=== PATIENT | male | born 1965 | race Asian ===

== ENCOUNTER 2018-01-06 21:30 | Emergency (ER) | END 2018-01-07 06:48 | disposition home or self-care (01) ==

== ENCOUNTER 2018-06-14 15:03 | Emergency (ER) | payer OTHER ==
[~2018-06-14] VITALS: Ht 152.4 cm; Wt 55.0 kg
[~2018-06-14 15:03] MED LIST: HYDR-4011 PO; NAPR-688 PO
[2018-06-14 15:05] VITALS: Ht 152.4 cm; Wt 55.0 kg
--- NOTE | 2018-06-14 15:10 | ERD ---
ER Documentation Chief Complaint Chief Complaint tired HPI The patient is a 52-year-old male, presenting to the ER because of generalized weakness, Tylenol, chronic cough, chronic chest discomfort for many weeks, he feels that there is no enjoyment in his life, he denies suicidal/homicidal ideation, denies auditory/visual hallucination. He denies fever, chills, neck pain, chest pain, dyspnea, abdominal pain, vomiting, dizzy, diarrhea. He smokes and drinks socially but quitted recently Past medical history: History of palpitation, cholelithiasis, hypertension, history of kidney stones, hepatic steatosis, depression Past surgical history: Cardiac angiogram 2 years ago that was unremarkable, colonoscopy a year ago that was unremarkable ROS All systems reviewed and are negative except as per history of present illness. Medications Home Meds Active Scripts Hydrocodone/Acetaminophen ([place] 5-325 Tablet) 1 Each Tablet, 1 EACH PO Q6 PRN for SEVERE PAIN LEVEL 7-10, #12 TAB Prov:GAVIOTA FERNANDO DO 01/07/18 Naproxen* (Naproxen*) 500 Mg Tablet, 500 MG PO BID PRN for PAIN, #20 TAB Prov:GAVIOTA FERNANDO DO 01/07/18 Allergies Allergies: Coded Allergies: No Known Allergy (Unverified , 01/06/18) PMhx/Soc Hx Alcohol Use: No Hx Substance Use: No Physical Exam Vitals Vital Signs Date Temp Pulse Resp B/P (MAP) Pulse Ox O2 O2 Flow FiO2 Time Delivery Rate 06/14/18 98.2 95 17 107/66 100 Room Air 20:15 (80) 06/14/18 100 17 106/66 100 Room Air 18:29 (79) 06/14/18 99 17 104/64 100 Room Air 16:45 (77) 06/14/18 99 17 97/64 (75) 100 Room Air 16:38 06/14/18 98.8 100 24 101/67 100 15:05 (78) Physical Exam Const: No acute distress. Head: Atraumatic. Eyes: Normal Conjunctiva. ENT: Normal External Ears, Nose and Mouth. Neck: Full range of motion. No meningismus. Resp: Clear to auscultation bilaterally. Cardio: Regular rate and rhythm. Abd: Soft, non distended, normal bowel sounds, non tender. Skin: No petechiae or rashes. Back: No midline or flank tenderness. Ext: No cyanosis, or edema. Neur: Awake and alert. No focal deficit Psych: Depressed Result Diagram: 06/14/18 1527 06/14/18 1527 Results 24 hrs Laboratory Tests Test 06/14/18 15:27 06/14/18 16:27 White Blood Count 6.3 10^3/ul Red Blood Count 3.49 10^6/ul Hemoglobin 11.2 g/dl Hematocrit 33.9 % Mean Corpuscular Volume 97.1 fl Mean Corpuscular Hemoglobin 32.1 pg Mean Corpuscular Hemoglobin Concent 33.0 g/dl Red Cell Distribution Width 12.0 % Platelet Count 218 10^3/UL Mean Platelet Volume 9.3 fl Immature Granulocytes % 0.500 % Neutrophils % % Segmented Neutrophils % (Manual) 54 % Band Neutrophils % (Manual) 5 % Lymphocytes % % Lymphocytes % (Manual) 21 % Reactive Lymphocytes % (Manual) 3 % Monocytes % % Monocytes % (Manual) 12 % Eosinophils % % Eosinophils % (Manual) 3 % Basophils % % Basophils % (Manual) 2 % Nucleated Red Blood Cells % 0.0 /100WBC Immature Granulocytes # 0.030 10^3/ul Neutrophils # 10^3/ul Neutrophils # (Manual) 3.4 10^3/ul Band Neutrophils # 0.3 10^3/ul Lymphocytes (Manual) 1.3 10^3/ul Lymphocytes # 10^3/ul Reactive Lymphocytes # 0.1 10^3/ul Monocytes # 10^3/ul Monocytes # (Manual) 0.7 10^3/ul Eosinophils # 10^3/ul Basophils # 10^3/ul Basophils # (Manual) 0.1 10^3/ul Nucleated Red Blood Cells # 10^3/ul Platelet Estimate NORMAL Sodium Level 138 mmol/L Potassium Level 4.2 mmol/L Chloride Level 97 mmol/L Carbon Dioxide Level 31 mmol/L Anion Gap 10 Blood Urea Nitrogen 17 mg/dl Creatinine 0.55 mg/dl Est Glomerular Filtrat Rate mL/min > 60 mL/min Glucose Level 106 mg/dl Calcium Level 9.1 mg/dl Total Bilirubin 0.1 mg/dl Direct Bilirubin 0.00 mg/dl Indirect Bilirubin 0.1 mg/dl Aspartate Amino Transf (AST/SGOT) 34 IU/L Alanine Aminotransferase (ALT/SGPT) 23 IU/L Alkaline Phosphatase 51 IU/L Troponin I < 0.012 ng/ml Total Protein 8.2 g/dl Albumin 4.2 g/dl Globulin 4.00 g/dl Albumin/Globulin Ratio 1.05 Lipase 173 U/L Bedside Urine pH (LAB) 6.5 Bedside Urine Protein (LAB) Negative Bedside Urine Glucose (UA) Negative Bedside Urine Ketones (LAB) Negative Bedside Urine Blood Trace-lysed Bedside Urine Nitrite (LAB) Negative Bedside Urine Leukocyte Esterase (L Negative Current Medications Medications Dose Sig/Juan Start Time Status Last (Trade) Ordered Route PRN Stop Time Admin Dose Reason Admin Sodium 1,000 ml @ Q1H ONCE 06/14/18 DC 06/14/18 Chloride 1,000 mls/hr IV 15:30 15:28 06/14/18 16:29 Procedures/MDM EKG: Read by emergency physician Rate/Rhythm: Normal Sinus Rhythm 95 beats/min QRS, ST, T-waves: No ST elevation, no T inversion, IRBBB Impression: Abnormal EKG MEDICAL MAKING DECISION: The patient is a 52-year-old male, presenting with chronic depression, acute dehydration. He was treated with 1 L normal saline for clinical dehydration with good response, is stable for outpatient follow-up The differential diagnoses considered include but are not limited to dehydration, electrolyte imbalance, depression Departure Diagnosis: Primary Impression: Depression Additional Impressions: Dehydration Anemia Condition: Good Comments I discussed the findings with the patient. I advised the patient to follow-up with the primary physician in about 2-3 days, sooner if needed and return if any concern. Disclaimer: Inadvertent spelling and grammatical errors are likely due to EHR/dictation software use and do not reflect on the overall quality of patient care. Also, please note that the electronic time recorded on this note does not necessarily reflect the actual time of the patient encounter. YORDAN MCINTOSH MD Jun 14, 2018 15:10
[2018-06-14] MEDS ORDERED: SOD CHLORIDE 0.9% 1,000 ML IV ONE (15:30)
[2018-06-14 20:15] VITALS: BP 107/66; PULSE 95; RESP 17
== END 2018-06-14 20:24 | disposition home or self-care (01) ==
LOC: E/R 15:03
DX: F32.9 Major depressive disorder, single episode, unspecified (principal); E86.0 Dehydration; D64.9 Anemia, unspecified; I10 Essential (primary) hypertension; R40.2142 Coma scale, eyes open, spontaneous, at arrival to emergency department; R40.2362 Coma scale, best motor response, obeys commands, at arrival to emergency department; R40.2252 Coma scale, best verbal response, oriented, at arrival to emergency department
CPT/HCPCS: 36415; 71045; 80053; 81003; 83690; 84484; 85025; 93005; J7030; Z7502